=== PATIENT | male | born 1970 | race Caucasian/White ===

== ENCOUNTER 2017-05-08 16:48 | Inpatient (IN) | payer BC ==
[~2017-05-08] VITALS: Ht 185.4 cm; Wt 122.0 kg
--- NOTE | ~2017-05-08 | CO ---
Unit #: [id number] #: [id number] Patient: FE ROMERO II [id number] [address] [place], [place] [address] [id number] I MR#: [id number] NAME: FE ROMERO II ROOM: 241 Age: 46 Sex: M Admission Date: 05/08/2017 : 1970 Attending Physician: Jer Saldivar M.D. Primary Care Physician: Rufino Eubanks M.D. Requesting Physician: Jer Saldivar M.D. Consultation Date: 05/10/2017 CONSULTATION REPORT REASON FOR CONSULTATION Recurrent MRSA infections. HISTORY OF PRESENT ILLNESS Mr. Romero is a 46-year-old male with a history of Crohn disease, as well as multiple MRSA abscesses. In the past he has been seen by infectious disease at [facility] for his abscesses; most recently he was there 3 months ago. He now returns for, what appeared to be, folliculitis on his right groin area that had started about a week ago. The wound had started to drain spontaneously, which he just watched and waited. The wound began to get worse, as well as a wound developing on his left thigh a few days after he had first started to have fevers with chills, for which he came in to the emergency room. He is now status post I and D of right and left upper inner thighs per surgery. Cultures are currently growing Staphylococcus aureus. Blood cultures are negative. The patient has been started on Levaquin and Flagyl, as well as vancomycin. We are now being consulted for antibiotic management and recurrent infections. Per his , they have received several different types of decolonization treatments for MRSA, including the use of Bactroban nasally, as well as frequent use of Hibiclens and decontamination of their house, although it appears that these wounds show up every couple of months. He has had them under his right and left axilla, at one point on his face, as well as scattered areas on his lower extremities. At one point, he had about 9 abscesses on his lower extremities. He denies any history of diabetes and denies any risk factors for HIV. Denies smoking, alcohol or illicit drug use. PAST MEDICAL HISTORY 1. Multiple cutaneous MRSA abscesses. 2. Scrotal abscesses. 3. Crohn disease status post partial small and large bowel resections. 4. Right ankle surgery. ALLERGIES Penicillins; he was told he has had as a child, although he is able to tolerate Keflex. HOME MEDICATIONS As needed Celebrex. CURRENT MEDICATIONS Reviewed. Currently the patient is on vancomycin, Flagyl and Levaquin. Unit #: [id number] #: [id number] Patient: FE ROMERO II FAMILY HISTORY Noncontributory. SOCIAL HISTORY The patient lives with his and family. He is a nonsmoker. Denies alcohol use. Denies illicit drug use. REVIEW OF SYSTEMS All negative except for those stated in the HPI. PHYSICAL EXAM GENERAL: Awake and alert. VITAL SIGNS: Temperature 98.6. On admission temperature was noted to be 102.2. Heart rate 77, respirations 18, blood pressure 119/71. CARDIOVASCULAR: Regular rate and rhythm. PULMONARY: Nonlabored. GI: Soft, nontender. Positive bowel sounds. SKIN: Right inner thigh with erythema. Surgical dressing in place with no drainage, no tenderness, trace edema. Left thigh with trace erythema, dressing in place, no drainage. MUSCULOSKELETAL: Able to move all extremities. DIAGNOSTIC STUDIES IMAGES: Chest x-ray - (1) to have active disease. LABORATORY DATA: Creatinine 1, sodium 135, potassium 3.8, AST 30, ALT 38. White count is 4 (yesterday was 16.2), hemoglobin 12.7, platelets 228. MICROBIOLOGY DATA: Blood cultures on May 08, two of two with no growth. Groin on right and left surgical drainage with Staphylococcus aureus. Pending sensitivities. ASSESSMENT 1. Right and left groin abscesses status post I and D. Cultures with Staphylococcus aureus. 2. Recurring multiple infections. 3. Obese. PLAN At this point will discontinue Levaquin and Flagyl, as no gram-negative rods are isolated in current cultures. Will discontinue vancomycin and change to Zyvox for better skin penetration. Due to recurrent infections, patient may need a decolonization process, although will discuss plan with Naida. The patient is clinically stable at this point. Will follow up on sensitivities of Staphylococcus aureus and cultures. Suspected, though, to be MRSA. Further recommendations will be given by Dr. Donahue, who will see the patient later today. Dictated by... Betty Guadalupe APRN for Marcel Pedraza/leah TD: 05/10/2017 16:22 JOB #: [id number] Unit #: [id number] #: [id number] Patient: YUKIFE L II CONSULTATION REPORT Page 1 of 1 X X CONSULTATION REPORT
--- NOTE | ~2017-05-08 | HP ---
Unit #: [id number] #: [id number] Patient: FE MIRZA II [id number] [address] [place], [place] [address] [id number] I MR#: [id number] NAME: FE MIRZA, II ROOM: 27424 Age: 46 Sex: M Admission Date: 05/08/2017 : 1970 Attending Physician: Susan Justice M.D. Primary Care Physician: Rufino Eubanks M.D. HISTORY AND PHYSICAL CHIEF COMPLAINT Right groin abscess/cellulitis. HISTORY OF PRESENT ILLNESS This 46-year-old male with history of multiple MRSA cutaneous abscesses and Crohn disease is admitted for right groin abscess. The patient was well until two days ago when he developed what he thought was folliculitis in the right groin. He developed itching, burning, redness, and swelling. He did not that an abscess evolved and started draining spontaneously. He began experiencing chills yesterday and today a fever with chills. The abscess stopped draining. Therefore, he presented to this emergency department late this afternoon with a temperature of 102.2. He was treated with Tylenol and two liters of normal saline. His initial lactic acid was 2.5. He was then given 2 grams of vancomycin along with Zosyn. An I and D was attempted, and a little bit of purulent drainage was obtained. He was also given Dilaudid and Zofran. On examination, he has an obvious abscess of the right groin which does not extend into the perineum. PAST MEDICAL HISTORY 1. Multiple cutaneous MRSA abscesses requiring I and D. 2. Scrotal abscess admitted to [facility] last year. 3. Crohn disease, status post partial small and large bowel resection. 4. Right ankle surgery following a fracture. ALLERGIES Penicillin and possibly to cephalosporins. HOME MEDICATIONS P.r.n. Celebrex. FAMILY HISTORY Crohn disease. SOCIAL HISTORY The patient lives with his and family. He is a lifelong nonsmoker and does not drink alcohol, nor does he use illicit drugs. REVIEW OF SYSTEMS Notable for pain and swelling of the right groin, MRSA abscesses, Crohn disease, and ankle surgery, along with I and D's of abscesses. All other systems were reviewed and are otherwise negative. Unit #: [id number] #: [id number] Patient: FE MIRZA II PHYSICAL EXAMINATION GENERAL: A very pleasant, moderately obese, 46-year-old male currently in no acute distress. VITAL SIGNS: Temperature 102.2, pulse 93, respirations 18, blood pressure 157/87, and O2 saturation is 100% on room air. HEENT: Eyes PERRLA. Extraocular muscles are intact. Pharynx is benign. NECK: Supple without adenopathy or thyromegaly. CHEST: Clear. CARDIAC: Normal S1 and S2 without S3, S4, or murmur. ABDOMEN: Bowel sounds are present. No hepatosplenomegaly, tenderness, or masses. EXTREMITIES: No pedal edema. Pedal pulses are present. There is an abscess with associated cellulitis in the right groin which does not extend to the perineum. NEUROLOGIC: Patient is awake, alert, and oriented. Cranial nerves are intact. Equal strength throughout. DIAGNOSTIC STUDIES ADMISSION LABORATORY: Hematocrit is 42.5, white blood count is 18.7, and normal platelet count. Negative cardiac enzymes. Normal coags. SMA-12 is normal. Lactic acid is 2.5. IMAGING: Chest x-ray likely no acute disease. There may be some soft tissue overlay or perhaps atelectasis at one of the lung bases. CARDIOLOGY: EKG shows normal sinus rhythm, rate 80, left axis deviation. ASSESSMENT 1. Right groin abscess/cellulitis with early sepsis. History of multiple MRSA cutaneous abscesses requiring I and D. 2. Crohn disease, status post partial bowel resection. 3. Possible penicillin and possible cephalosporin allergy, although patient tolerated Zosyn in the emergency room. PLANS 1. IV fluids and supportive treatment. 2. Vancomycin, Levaquin, and Flagyl pending culture results and then will deescalate antibiotics. 3. Florastor for now. 4. Surgical consultation. 5. SCDs for DVT prophylaxis. 6. Recheck labs in the morning. 1. Dictated by Susan Justice M.D. AML/am TD: 05/08/2017 22:00 JOB #: [id number] Unit #: [id number] #: [id number] Patient: FE MIRZA II HISTORY AND PHYSICAL Page 1 of 1 X Susan Justice MD HISTORY AND PHYSICAL
--- NOTE | ~2017-05-08 | CR72 ---
[facility] A Service of [facility] RADIOLOGY TEXT RESULTS PATIENT: FE MIRZA II LOCATION: A : [birth year] UNIT #: [id number] AGE: [address]: Jer Saldivar MD SEX: M ORDER DR: [id number] [facility] [address] [place], [place] [address] [id number] I MR#: [id number] Acc #: [id number] NAME: FE MIRZA, II : 1970 SEX: M STUDY DATE/TIME: 05/08/2017 17:48 UNIT: [facility] ROOM: [facility] STUDY DESCRIPTION: CR Chest Single View Portable Attending Physician: Susan Justice M.D. Ordering Physician: Ed Aubrey Bello M.D. Primary Care Physician: Rufino Eubanks M.D. MEDICAL IMAGING REPORT This report is preliminary unless electronic signature is present EXAM Single view of the chest, 05/08/2017 COMPARISON None. HISTORY Acute shortness of air and sepsis today. FINDINGS Single frontal view of the chest was obtained. There is mild opacity noted in the left lateral CP angle. It could be related to overlying extrinsic soft tissue shadow or mild atelectasis/pleural fluid or thickening in this region. Remaining lungs appear to be well aerated. Heart, mediastinum and bones are within normal limits. Dictated by... Brianna Samayoa M.D. THIS IS AN ELECTRONICALLY VERIFIED REPORT Brianna Samayoa M.D. at 05/09/2017 3:28 PM CPR/ljd TD: 05/09/2017 04:04 JOB #: [id number] MEDICAL IMAGING REPORT Page 1 of 1 COPY
--- NOTE | ~2017-05-08 | OR ---
Unit #: [id number] #: [id number] Patient: FE MIRZA II [id number] [address] [address] [id number] I MR#: [id number] NAME: FE MIRZA II ROOM: [facility] Date of Procedure: 05/09/2017 Admission Date: 05/08/2017 Surgeon: Ortiz Bishop M.D. : 1970 Attending Physician: Jer Saldivar M.D. Primary Care Physician: Rufino Eubanks M.D. OPERATIVE REPORT PREOPERATIVE DIAGNOSES 1. Necrotic abscess, right upper inner thigh. 2. Necrotic abscess, left upper inner thigh. ANESTHESIA General LMA anesthesia with 0.5% Marcaine plain local anesthesia. PROCEDURES PERFORMED 1. Incision, drainage, and sharp excisional debridement of skin and subcutaneous tissue, right upper inner thigh 6 x 6 cm area. 2. Incision, drainage, and sharp excisional debridement of skin and subcutaneous tissue, left upper inner thigh 3 x 3 cm area. FINDINGS See above. FLUIDS 500 mL crystalloid. ESTIMATED BLOOD LOSS Minimal. DRAINS None. TUBES None. SPECIMENS Sent to microbiology and pathology. COMPLICATIONS None apparent. CONDITION The patient tolerated the procedure well. INDICATIONS FOR PROCEDURE The patient is a 46-year-old male, who presents at this time with a necrotic abscess of right upper inner thigh and left upper inner thigh. He presents at this time for incision and drainage and debridement. Unit #: [id number] #: [id number] Patient: FE MIRZA II DESCRIPTION OF PROCEDURE After obtaining informed consent as well as receiving scheduled antibiotics, the patient was brought to the operating room and after adequate general LMA anesthesia was obtained, he was carefully placed into the lithotomy position using candy-cane stirrups with all extremities manipulated very carefully and all pressure points carefully padded. His upper inner thighs bilaterally and perineum were prepped and draped in a sterile fashion. An incision was made into the area of the left upper inner thigh and purulent material was evacuated. The necrotic tissue was sharply debrided with skin and subcutaneous tissue, 3 x 3 cm area back to healthy viable tissue and was sent to microbiology and pathology. The wound was irrigated. Hemostasis was obtained with the Bovie, infiltrated with 0.5% Marcaine plain local anesthesia and packed with saline soaked fluff. At this point in time, an incision was made into the abscess of the right upper inner thigh. Purulent material was evacuated and cultures were sent. The involved skin and subcutaneous tissue was sharply debrided with a scalpel circumferentially back to viable tissue. Hemostasis was obtained with the Bovie. All areas were infiltrated with 0.5% Marcaine plain local anesthesia. The wound was irrigated. It was packed with saline soaked fluffs. Dry 4x4s were placed followed by tape. Needle counts, sponge counts, and instrument counts were all correct as reported by the scrub nurse x2. The patient went from the operating room to the recovery room in stable condition. Dictated by... Marcel Tiwari/papa TD: 05/09/2017 17:51 JOB #: [id number] CC: [facility] Marcel Pedraza M.D. OPERATIVE REPORT Page 1 of 1 X Ortiz Bishop MD X PROCEDURE OPERATIVE NOTE
--- NOTE | ~2017-05-08 | EKG ---
PATIENT: FE MIRZA UNIT #: [id number] Ventricular Rate: 81 BPM Atrial Rate: 81 BPM P-R Interval: 142 ms QRS Duration: 78 ms Q-T Interval: 358 ms QTC Calculation(Bezet): 415 ms P [place]: 28 degrees Calculated R [place]: -12 degrees Calculated T [place]: 8 degrees Diagnosis Line: Normal sinus rhythm Diagnosis Line: Normal ECG Diagnosis Line: No previous ECGs available Diagnosis Line: Confirmed by LIAN MURILLO MD ([id number]) on 05/09/2017 Diagnosis Line: 12:09:01 AM INTERPRETING MD: LIDIA GUADARRAMA
--- NOTE | ~2017-05-08 | DS ---
Unit #: [id number] #: [id number] Patient: FE MIRZA II [id number] [facility] [address]. [place], [place] [address] [id number] MR#: [id number] NAME: FE MIRZA, II ROOM: 241 Age: 46 Sex: M Admission Date: 05/08/2017 : 1970 Discharge Date: 05/11/2017 Attending Physician: Jer Saldivar M.D. Primary Care Physician: Rufino Eubanks M.D. DISCHARGE SUMMARY REASON FOR ADMISSION Right thigh abscess/cellulitis. HISTORY OF PRESENT ILLNESS The patient is a 46-year-old, very pleasant male who was admitted secondary to right thigh/groin abscess. He, off and on over the past several years, has been developing recurrent boils and/or abscesses, has been admitted several times to both [facility] as well as [facility]. He was subsequently admitted for the same. He was initiated on IV antibiotics. His initial temperature was 102. Consultation was subsequently placed to [facility]. The patient ultimately underwent I and D by Dr. Bishop on May 09, 2017. Postoperatively, he otherwise did well. Final wound cultures did reveal MRSA similar to previous infections that he has had in the past. At time of discharge, we will be giving a prescription for Zyvox 600 mg p.o. b.i.d. x10 days. We did consult Infectious Disease Services, Dr. Donahue and associates, secondary to his recurrent boils. Hemoglobin A1C was performed which came back at 5.2%. Therefore, diabetes was not a possible etiology but certainly hidradenitis suppurativa could be entertained as a possible diagnosis. His blood cultures did not show any acute bacterial growth. After Zyvox prescription is completed, the patient will be started on doxycycline 50 mg p.o. daily as suppressive therapy. He will follow up with his primary care physician, Dr. Joceline Gonzalez, in 7 to 10 days. He will be given a work note from May 08, 2017 to May 19, 2017, with return to work on May 20, 2017. He was given a prescription for [place] 10/325 mg one tablet p.o. q.4 p.r.n. FINAL DISCHARGE DIAGNOSES 1. Right groin abscess status post incision and drainage. 2. Recurrent boil/abscesses likely underlying hidradenitis suppurativa. 3. Morbid obesity. FINAL DISCHARGE MEDICATIONS 1. Zyvox 600 mg p.o. b.i.d. x10 days. 2. Doxycycline 50 mg p.o. daily afterwards. 3. [place] 10/325 mg one tablet p.o. q.6 p.r.n., #20, prescription given. DISCHARGE CONDITION Stable. DISCHARGE DISPOSITION Home. Unit #: [id number] #: [id number] Patient: YUKIFE Gustafson II Dictated by... Marcel Harden/liz TD: 05/11/2017 12:55 JOB #: [id number] DISCHARGE SUMMARY Page 1 of 1 X Jer Saldivar MD X DISCHARGE SUMMARY
--- NOTE | ~2017-05-08 | CO ---
Unit #: [id number] #: [id number] Patient: FE ROMERO II [id number] [address] [place], [place] [address] [id number] I MR#: [id number] NAME: FE ROMERO II ROOM: 241 Age: 46 Sex: M Admission Date: 05/08/2017 : 1970 Attending Physician: Jer Saldivar M.D. Primary Care Physician: Rufino Eubanks M.D. Consultation Date: 05/09/2017 CONSULTATION REPORT REVISED REPORT HISTORY OF PRESENT ILLNESS Mr. Romero is a 46-year-old white male, who has a fairly large right groin abscess extending down into his thigh as well as a smaller one on the left side. Attempted I and D in the ER was done, but it was not opened that well. The patient has been running fever and was noted to have a marginally elevated serum lactate level. He was admitted for surgical treatment. The patient was given vancomycin and Zosyn as far as antibiotics go. PAST MEDICAL HISTORY Has had reconstructed bowel surgery, right ankle surgery but he has no GI complaints today. He has had history of Crohn disease. SOCIAL HISTORY He is a nonsmoker, nondrinker. No illicit drug use. ALLERGIES Penicillin, unclear as to whether or not the Zosyn was given. PHYSICAL EXAMINATION GENERAL: Cooperative, alert, white male, obese. HEENT: Clear. No jaundice. Pupils equally reactive to light and accommodation. CHEST: Clear to auscultation and percussion. CARDIAC: Rhythm is regular. No murmurs. ABDOMEN: Soft, nontender. EXTREMITIES: Right groin - large area of induration with small area of fluctuma. On the left side, there is a smaller area. No drainage, however. PLAN We need to go ahead and proceed with opening and draining both these areas and cleaning them out. Risks, benefits explained to patient. He understands. Dictated by... Unit #: [id number] #: [id number] Patient: FE ROMERO II Marcel Hendrickson/kwan TD: 05/09/2017 14:22 JOB #: [id number] CONSULTATION REPORT Page 1 of 1 X Luther Underwood MD CONSULTATION REPORT
[~2017-05-08 16:48] MED LIST: ACETAMINOPHEN PO; BACTRIM DS TABL1 TA2; BACTRIM DS TABL1 TA2 PO; CLEOCIN HCL300 M1 PO; CLINDAMYCIN HC300 MG PO; IBUPROFEN800 MG PO; TYLENOL #3 PO; VOLTAREN75 MG PO
[2017-05-08 18:13] LABS: BASOPHIL% 0.2 % (0-2.5); DIFF IND YES; EOSINOPHIL% 0.1 % (0.0-7.0); HEMATOCRIT 42.5 % (38.0-50.0); HEMOGLOBIN 14.7 gm/dL (13.0-16.0); LYMPHOCYTE# 2.1 X10e3 (1.0-3.5); LYMPHOCYTE% 11.5 % (17.0-45.0); MEAN CELL VOLUME 83.7 FL (83-96); MEAN CORPUSCULAR HEMOGLOBIN 28.9 PG (28-34); MEAN CORPUSCULAR HGB CONC 34.5 g/dL (30-36); MEAN PLATELET VOLUME 7.4 FL (6.5-11.5); MONOCYTE# 1.2 X10e3 (0-1.0); MONOCYTE% 6.3 % (3.0-12.0); NEUTROPHIL# 15.3 X10e3 (1.5-7.1); NEUTROPHIL% 81.9 % (40-75); PLATELET COUNT 300 X10e3 (140-420); RED BLOOD COUNT 5.08 X10e (3.90-5.60); RED CELL DISTRIBUTION WIDTH 13.2 % (11.0-15.5); WHITE BLOOD COUNT 18.7 X10e3 (4.0-10.5)
[2017-05-08 18:21] LABS: INR 1.1; PARTIAL THROMBOPLASTIN TIME 29.5 SECONDS (23.5-31.3); PROTHROMBIN TIME (PATIENT) 11.5 SECONDS (10.0-11.7)
[2017-05-08 18:29] LABS: ALBUMIN SERUM 4.4 g/dL (3.5-5.0); BILIRUBIN, DIRECT 0.4 mg/dL (0.0-0.2); BILIRUBIN,INDIRECT 1.2 mg/dL (0.0-0.9); BILIRUBIN,TOTAL 1.6 mg/dL (0.2-2.0); CALCIUM SERUM 9.1 mg/dL (8.4-10.2); GLOM FILT RATE Estimated 89.2 mL/min (>60); POTASSIUM 3.6 mmol/L (3.5-5.1); PROTEIN TOTAL SERUM 8.1 g/dL (6.0-8.3)
[2017-05-08 18:37] LABS: PLATELET ESTIMATE NORMAL (NORMAL)
[2017-05-08 18:38] LABS: ANISOCYTOSIS SL
[2017-05-08] MEDS ORDERED: NO MEDICATIONS (19:14)
[2017-05-08 20:35] LABS: POC - CKMB <1.0 ng/mL (0.0-7.9); POC - TROPONIN <0.05 ng/mL (<=0.05)
[2017-05-09 07:03] LABS: HEMATOCRIT 39.7 % (38.0-50.0); HEMOGLOBIN 13.8 gm/dL (13.0-16.0); MEAN CELL VOLUME 84.2 FL (83-96); MEAN CORPUSCULAR HEMOGLOBIN 29.2 PG (28-34); MEAN CORPUSCULAR HGB CONC 34.7 g/dL (30-36); MEAN PLATELET VOLUME 7.1 FL (6.5-11.5); RED BLOOD COUNT 4.71 X10e (3.90-5.60); RED CELL DISTRIBUTION WIDTH 13.6 % (11.0-15.5); WHITE BLOOD COUNT 16.2 X10e3 (4.0-10.5)
[2017-05-09 07:45] LABS: BUN/CREATININE RATIO 7.27; CALCIUM SERUM 8.2 mg/dL (8.4-10.2); CREATININE SERUM 1.1 mg/dL (0.6-1.4); GLOM FILT RATE Estimated 79.5 mL/min (>60); POTASSIUM 4.3 mmol/L (3.5-5.1)
[2017-05-10 06:46] LABS: HEMATOCRIT 37.8 % (38.0-50.0); HEMOGLOBIN 12.7 gm/dL (13.0-16.0); MEAN CELL VOLUME 84.6 FL (83-96); MEAN CORPUSCULAR HEMOGLOBIN 28.5 PG (28-34); MEAN CORPUSCULAR HGB CONC 33.7 g/dL (30-36); MEAN PLATELET VOLUME 7.5 FL (6.5-11.5); RED BLOOD COUNT 4.47 X10e (3.90-5.60); RED CELL DISTRIBUTION WIDTH 13.2 % (11.0-15.5)
[2017-05-10 07:30] LABS: CALCIUM SERUM 8.2 mg/dL (8.4-10.2); GLOM FILT RATE Estimated 89.2 mL/min (>60); POTASSIUM 3.8 mmol/L (3.5-5.1)
[2017-05-11] MEDS ORDERED: PAIN RELIEF500 M1 PO (15:15)
[2017-05-11] MEDS ORDERED: ZYVOX600 MG PO (15:15)
[2017-05-11] MEDS ORDERED: LORTAB 10-3251 EACH (15:16)
[2017-05-11] MEDS ORDERED: DOXYCYCLINE HYC50 M1 PO (15:16)
[2017-05-12 08:59] LABS: IMMUNOGLOBULIN A 164 mg/dL (81-463); IMMUNOGLOBULIN E <2 kU/L (<=114); IMMUNOGLOBULIN G 900 mg/dL (694-1618); IMMUNOGLOBULIN M 160 mg/dL (48-271)
[2017-05-13 00:32] LABS: NIL 0.05 IU/mL (()); QUANTIFERON POSITIVE (Negative); TB AG-NIL 0.43 IU/mL (())
== END 2017-05-11 15:50 | disposition home or self-care (01) | DRG 571 ==
LOC: CED 16:48 → C2A 21:20 → CEDOF 21:20 → CED 21:37 → CEDOF 22:44 → C2A 22:44
PROVIDERS: Emergency Medicine; Family Medicine; Internal Medicine; Internal Medicine Infectious Disease; Surgery
PROC: 0JBL0ZZ Excision of Right Upper Leg Subcutaneous Tissue and Fascia, Open Approach (ICD-10-PCS; 2017-05-09)
PROC: 0JBM0ZZ Excision of Left Upper Leg Subcutaneous Tissue and Fascia, Open Approach (ICD-10-PCS; principal; 2017-05-09 12:30)
DX: L02.416 Cutaneous abscess of left lower limb (principal); L02.214 Cutaneous abscess of groin; E66.01 Morbid (severe) obesity due to excess calories; L02.415 Cutaneous abscess of right lower limb; B95.62 Methicillin resistant Staphylococcus aureus infection as the cause of diseases classified elsewhere; Z68.35 Body mass index [BMI] 35.0-35.9, adult; L73.2 Hidradenitis suppurativa; Z88.0 Allergy status to penicillin; Z86.14 Personal history of Methicillin resistant Staphylococcus aureus infection
CPT/HCPCS: 10060; 36415; 71010; 80048; 80076; 82553; 82784; 82785; 83036; 83605; 84484; 85025; 85027; 85610; 85730; 86480; 87040; 87070; 87075; 87077; 87186; 87205; 88304; 88312; 93005; 96365; 96366; 96375; 99285; J1170; J1650; J1956; J2020; J2250; J2405; J2543; J3010; J3370

== ENCOUNTER 2017-05-28 02:36 | Inpatient (IN) | payer BC ==
[~2017-05-28] VITALS: Ht 180.3 cm; Wt 122.0 kg
--- NOTE | ~2017-05-28 | US85 ---
[facility] A Service [facility] RADIOLOGY TEXT RESULTS PATIENT: FE MIRZA II LOCATION: [place] [address] : [birth year] UNIT #: [id number] AGE: [address]: Sherly Garcia MD SEX: M ORDER DR: [id number] [place] [id number] [facility]. [place], [place] [address] [id number] I MR#: [id number] #: [id number] NAME: FE MIRZA II : 1970 SEX: M STUDY DATE/TIME: 05/28/2017 7:28 UNIT: [facility] ROOM: [facility] STUDY DESCRIPTION: LE Veins Unilat or Ltd Stdy Attending Physician: Sherly Garcia M.D. Ordering Physician: Bruno Martinez M.D. Primary Care Physician: Rufino Eubanks M.D. MEDICAL IMAGING REPORT This report is preliminary unless electronic signature is present EXAM Right lower extremity venous ultrasound HISTORY Right leg pain for a week. TECHNIQUE Venous ultrasound examination of the right lower extremity was performed using grayscale, spectral Doppler and color flow Doppler imaging. FINDINGS The examination is negative. There is no evidence of right lower extremity deep venous thrombus from the groin to the lower calf. Visualized greater saphenous vein is also patent. IMPRESSION Negative examination. No evidence of right lower extremity deep venous thrombosis. Dictated by... Riky Alfredo M.D. THIS IS AN ELECTRONICALLY VERIFIED REPORT Riky Alfredo M.D. at 05/28/2017 3:00 PM FEL/to TD: 05/28/2017 14:18 JOB #: [id number] [facility] A Service [facility] RADIOLOGY TEXT RESULTS PATIENT: FE MIRZA II LOCATION: [place] [address] : [birth year] UNIT #: [id number] AGE: [address]: Sheryl Garcia MD SEX: M ORDER DR: MEDICAL IMAGING REPORT Page 1 of 1 COPY
--- NOTE | ~2017-05-28 | HP ---
Unit #: [id number] #: [id number] Patient: FE MIRZA II [id number] [address] [place], [place] [address] [id number] MR#: [id number] NAME: FE MIRZA II ROOM: 464 Age: 46 Sex: M Admission Date: 05/28/2017 : 1970 Attending Physician: Sherly Garcia M.D. Primary Care Physician: Rufino Eubanks M.D. HISTORY AND PHYSICAL CHIEF COMPLAINT Right ankle/big toe swelling. HISTORY OF PRESENT ILLNESS The patient is a 46-year-old male with past medical history of MRSA and Crohn disease who presented to the emergency department for evaluation of the above. Of note the patient was hospitalized at [facility] May 08 through May 11, 2017 for right thigh abscess/cellulitis. He ultimately underwent incision and drainage. Wound culture grew MRSA. Blood cultures from May 08, 2017 showed no growth after 5 days. He was discharged home on Zyvox for an additional 10 days, which he completed as prescribed. He was then instructed to start doxycycline for suppression, as per infectious disease's recommendation. He has been taking that as prescribed, as well. He has also been packing the right thigh wound daily with a normal saline dressing. The patient states that he developed pain in his right heel on the day of discharge. He saw his primary care physician and was placed in some type of boot for about 24 hours. That pain resolved. He then developed right knee pain on May 22, 2017. He saw his primary care physician. X-rays, as well as blood work, were done. Family states that his white blood cell count was 11. He subsequently developed pain in the right great toe and ankle on May 24, 2017. He describes the pain as "unbearable." The pain in the right knee has resolved. He denies any similar pain in the toe or ankle. He denies any fever. No chest pain. No cough or cold symptoms. No nausea or vomiting. The pain is exacerbated by movement. There are no alleviating factors. In the emergency department right lower extremity venous Doppler was done and negative for DVT. Right ankle x-ray showed nothing acute. White blood cell count is 13.1. CRP is 1.9. Lactic acid is 1.8. He was given vancomycin in the emergency department, as well as a total of 8 mg of morphine, 1 mg of Dilaudid, 4 mg of Zofran. He is being admitted to [facility] for evaluation and further treatment. PAST MEDICAL HISTORY 1. Admission to [facility] May 08 through May 11, 2017 for right thigh abscess/cellulitis, ultimately growing MRSA in the wound culture. He was discharged home on Zyvox, followed by doxycycline suppression, which he has been taking as prescribed. 2. 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 3. Crohn disease status post partial small and large bowel resection, Unit #: [id number] #: [id number] Patient: FE MIRZA CITLALI followed by Dr. Nye. PAST SURGICAL HISTORY 1. Multiple incision and drainage procedures for abscesses. 2. Partial small and large bowel resection. 3. Right ankle surgery. SOCIAL HISTORY The patient lives with his . There is no tobacco or alcohol use. He does fpc work. FAMILY HISTORY Notable for Crohn disease. ALLERGIES Penicillin. HOME MEDICATIONS Doxycycline 50 mg daily. REVIEW OF SYSTEMS A complete review of systems is negative except as indicated in the HPI. PHYSICAL EXAMINATION VITAL SIGNS: Temperature is 97.8, pulse 70, respirations 16, blood pressure 174/91, oxygen saturation 100% on room air. GENERAL: The patient is a very pleasant male who is awake and alert, in no acute distress. HEENT: The head is atraumatic. Mucous membranes are moist. NECK: Supple. Trachea is midline. CARDIOVASCULAR: Regular rate and rhythm. RESPIRATORY: Lungs are clear to auscultation bilaterally with no increased work of breathing. ABDOMEN: Soft, nontender with bowel sounds present in all 4 quadrants. EXTREMITIES: The proximal right thigh demonstrates a quarter sized wound with packing in place. The right knee is not tender to palpation. The right ankle is tender to the slightest palpation. He is also quite tender at the metatarsophalangeal joint of the great toe. There is also associated mild erythema. He has decreased range of motion secondary to pain. There is a 2+ dorsalis pedis pulse. Sensation is subjectively intact. NEUROLOGIC: The patient is awake and alert. He follows commands. PSYCHIATRIC: Mood and affect are normal. The patient is cooperative. SKIN: Skin demonstrates the previously described abnormalities. DIAGNOSTIC TESTS IMAGING: Right lower extremity venous Doppler negative for DVT. Right ankle x-ray shows nothing acute. LABORATORY: Lactic acid is 1.8. Comprehensive metabolic panel notable for ALT of 42. CRP is 1.9. Complete blood count notable for white blood cell count of 13.1, sed rate 25. ASSESSMENT 1. The patient is a 46-year-old male with right ankle/foot pain concerning for possible septic arthritis versus gout. The patient received vancomycin in the emergency department. He does have a history of MRSA. Unit #: [id number] #: [id number] Patient: FE MIRZA II 2. Leukocytosis with no other SIRS criteria. Initial lactic acid was 1.8. 3. History of MRSA. 4. History of Crohn disease, not on any medications. He is, however, status post surgery involving the small and large intestines. He sees Dr. Nye. PLAN 1. Admit to intermediate level. 2. Healthy heart diet. 3. Normal saline at 75 mL an hour. 4. Vancomycin IV and Rocephin IV pending further workup. 5. Blood cultures x2. 6. Consult Dr. Salvador regarding right ankle/foot pain and concern for possible septic arthritis. 7. Check uric acid level. 8. Morphine p.r.n. 9. Zofran p.r.n. 10. Repeat labs in the morning, including CRP. . 11. Additional workup and consultants based on above. Dictated by Marcel Horvath/leah TD: 05/28/2017 12:21 JOB #: [id number] HISTORY AND PHYSICAL Page 1 of 1 X Sherly Garcia MD HISTORY AND PHYSICAL
--- NOTE | ~2017-05-28 | DS ---
Unit #: [id number] #: [id number] Patient: FE ROMERO II [id number] [address] [place], [place] [address] [id number] MR#: [id number] NAME: FE ROMERO, II ROOM: 464 Age: 46 Sex: M Admission Date: 05/28/2017 : 1970 Discharge Date: 05/29/2017 Attending Physician: Mirella Blum M.D. Primary Care Physician: Rufino Eubanks M.D. DISCHARGE SUMMARY PRINCIPAL DIAGNOSES 1. Acute gouty arthritis of the right first metatarsophalangeal joint. 2. Reactive leukocytosis. 3. Obesity. 4. History of Crohn disease, currently controlled off of medication. 5. History of methicillin-resistant Staphylococcus aureus of the skin. CONSULTANTS Dr. Salvador, orthopedic surgery. DIAGNOSTIC STUDIES IMAGING: CT scan of the right foot and ankle without contrast revealing traumatic bone changes to the right talar bone. There is calcification of the right first metatarsophalangeal joint with questionable pseudo-gouty arthritis. CLINICAL HISTORY AND HOSPITAL COURSE Mr. Romero is a 46-year-old male who presented to the emergency department with acute right foot swelling and erythema. Please refer to H and P for further details. In the emergency department, the patient was found to have a very mild leukocytosis but had no evidence of fever. Given he has history of MRSA in the past, he was subsequently admitted for further evaluation. Patient was placed on broad-spectrum IV antibiotics but remained afebrile. Leukocytosis was essentially unchanged on antibiotics. Uric acid level done today is elevated at 7.8, and CT scan was done with results as noted. We suspect patient's erythema and joint pain are an acute gouty flare plus/minus, perhaps, some underlying pseudogout. Patient has received 3 doses of Colchicine during hospitalization, in addition to a single dose of Solu-Medrol. He can be discharged home later today with close followup with his PCP. I will note, again, no evidence of infection, and antibiotics were discontinued. DISCHARGE CONDITION Stable. DISCHARGE STATUS Discharge to home. DISCHARGE MEDICATIONS 1. Naproxen 500 mg p.o. b.i.d. for 5 days. 2. Oxycodone 5 mg 1 tablet p.o. q.h.s. p.r.n. for pain (number given 4). 3. Doxycycline 50 mg p.o. daily. Unit #: [id number] #: [id number] Patient: FE ROMERO II DISCHARGE INSTRUCTIONS Patient was instructed to be nonweightbearing until pain resolves in the right foot, at which time he can increase activity as tolerated. He can follow a heart healthy diet. FOLLOW-UP 1. Patient will follow up with Dr. Eubanks in 2 weeks. 2. Should have recheck of uric acid level then and can, perhaps, consider addition of Allopurinol. NOTE: Time spent on discharge today - 37 minutes. Dictated by... Mirella Blum M.D. JAYDON/leah TD: 05/30/2017 11:31 JOB #: [id number] DISCHARGE SUMMARY Page 1 of 1 X Mirella Blum MD X DISCHARGE SUMMARY
--- NOTE | ~2017-05-28 | CR21 ---
[facility] A Service of [facility] & [facility] RADIOLOGY TEXT RESULTS PATIENT: FE MIRZA II LOCATION: [place] [address] : [birth year] UNIT #: [id number] AGE: [address]: Sherly Garcia MD SEX: M ORDER DR: [id number] [facility] [address] [facility]. [place], [place] [address] [id number] I MR#: [id number] #: [id number] NAME: FE MIRZA II : 1970 SEX: M STUDY DATE/TIME: 05/28/2017 5:39 UNIT: [facility] ROOM: [facility] STUDY DESCRIPTION: CR Ankle Min 3 Views Rt Attending Physician: Sherly Garcia M.D. Ordering Physician: Bruno Martinez M.D. Primary Care Physician: Rufino Eubanks M.D. MEDICAL IMAGING REPORT This report is preliminary unless electronic signature is present EXAM Right ankle 3 views. HISTORY Ankle pain for 3 days. No injury. Swelling. FINDINGS 3 views of the right ankle demonstrate normal bone alignment. No fracture, joint space narrowing or abnormal sclerosis. No opaque soft tissue foreign body. Small posterior calcaneal spur. IMPRESSION No acute findings. Dictated by... Fabian Kwan M.D. THIS IS AN ELECTRONICALLY VERIFIED REPORT Fabian Kwan M.D. at 05/28/2017 10:32 PM DFL/gz TD: 05/28/2017 13:07 JOB #: [id number] MEDICAL IMAGING REPORT Page 1 of 1 COPY
--- NOTE | ~2017-05-28 | CO ---
Unit #: [id number] #: [id number] Patient: FE MIRZA II [id number] [address] [place], [place] [address] [id number] MR#: [id number] NAME: FE MIRZA II ROOM: 464 Age: 46 Sex: M Admission Date: 05/28/2017 : 1970 Attending Physician: Mirella Blum M.D. Primary Care Physician: Rufino Eubanks M.D. Consultation Date: 05/29/2017 CONSULTATION REPORT ADMITTING PHYSICIAN Dr. Garcia CONSULT PHYSICIAN Dr. Salvador REASON FOR CONSULTATION Right foot and ankle pain. HISTORY OF PRESENT ILLNESS The patient is a pleasant 46-year-old who we were consulted by Dr. Garcia for right foot and ankle pain. The patient reports he did have a history of MRSA in his right groin area. The patient reports he has had right foot and ankle pain that has been going on approximately four days. he did go to his family doctor and they put boot on his right lower extremity but just for a day. The patient has been treated with antibiotics for his infections. Today, his right foot is some better. He rates his pain as an 8 on a scale of 1 to 10. Again, the patient does feel like this has gotten much better. Now, he just has a little pain and numbness in his right great toe. He denies any fever or chills. The patient reports that it is a little worse with ambulation. The patient has not suffered any trauma. PAST MEDICAL HISTORY 1. Recent admission to [place] May 08 through May 11 for right thigh abscess/cellulitis. Ultimately MRSA in the wound. 2. History of multiple MRSA abscess requiring I and D. 3. Crohn's disease. PAST SURGICAL 1. Multiple incision and drainage procedures for abscess. 2. Partial small and large bowel resection. 3. Right ankle surgery. SOCIAL HISTORY The patient lives with his . Denies any tobacco or alcohol. FAMILY HISTORY Notable for Crohn's. ALLERGIES Penicillin. HOME MEDICATIONS Unit #: [id number] #: [id number] Patient: FE MIRZA II Doxycycline 50 mg daily. REVIEW OF SYSTEMS CONSTITUTIONAL: Denies any weight gain or weight loss. EYES: Denies any double vision or blurred vision. LUNGS: Denies any shortness of air or chronic cough. CARDIOVASCULAR: Denies any chest pain or irregular heartbeat. ABDOMEN: Denies any nausea or vomiting. MUSCULOSKELETAL: Admits to some pain in his right foot/great toe, improved. SKIN: Denies any rashes or lesions. Twelve complete systems in total reviewed and negative other than above. PHYSICAL EXAMINATION GENERAL: He is well developed, well nourished, in no acute distress. VITAL SIGNS: His temperature 97.8, blood pressure 149/690, heart rate 72 and regular, respirations 16. HEENT: Normocephalic, atraumatic. PERRLA. Extraocular movements intact. Conjunctivae clear. NECK: Supple. No thyromegaly. CARDIOVASCULAR: S1, S2. RESPIRATORY: Lungs clear to auscultation. No accessory muscle use. ABDOMEN: Soft, nontender, nondistended. Positive bowel sounds. MUSCULOSKELETAL EXAMINATION: Patient's right ankle reveals he did have decreased range of motion. He had equal strength in his lower extremities bilaterally. He had 2+ pulses in his lower extremities bilaterally. The patient did have a lot of tenderness in the metatarsophalangeal joint of his great toe. There is mild edema but no erythema. SKIN: No rashes, lesions or ulcers. NEUROLOGICAL/LIMITED ORTHOPEDIC EXAM: Moved all four extremities without problems or complications. DIAGNOSTIC STUDIES IMAGING: CT scan dictation not back but voice clip did not show any signs of infection. Possible pseudogout. Ultrasound was negative for DVT. LABORATORY: Sodium is 137, potassium is 4.3, chloride is 101, CO2 26, BUN 14, creatinine 0.9, glucose 90, WBC 13.1, hemoglobin 14.9. X-rays of his right ankle - no acute findings. ASSESSMENT Right foot pain. PLAN We will redraw uric acid and make further recommendations based upon this test. Dictated by... Philip Mckeon P.A.-C- for Jose J Salvador M.D. SHAILESH/kapil Unit #: [id number] #: [id number] Patient: FE MIRZA II TD: 05/29/2017 09:17 JOB #: [id number] CONSULTATION REPORT Page 1 of 1 X X CONSULTATION REPORT
--- NOTE | ~2017-05-28 | CT95 ---
[facility] A Service of [facility] & [facility] RADIOLOGY TEXT RESULTS PATIENT: FE MIRZA II LOCATION: [place] [address]- : [birth year] UNIT #: [id number] AGE: [address]: Mirella Blum MD SEX: M ORDER DR: [id number] [facility] [address] [facility]. [place], [place] [address] [id number] MR#: [id number] Acc #: [id number] NAME: FE MIRZA, CITLALI : 1970 SEX: M STUDY DATE/TIME: 05/28/2017 20:14 UNIT: [facility] ROOM: [facility] STUDY DESCRIPTION: CT Lower Ext Rt Wo Cont Attending Physician: Mirella Blum M.D. Ordering Physician: Justo Sharma Primary Care Physician: Rufino Eubanks M.D. MEDICAL IMAGING REPORT This report is preliminary unless electronic signature is present EXAM CT right ankle. HISTORY 46-year-old male right great toe and ankle pain for [address] exam was performed with one or more of the following radiation dose reduction techniques: automatic exposure control, adjustment of mA and/or kV according to patient size, and iterative reconstruction. FINDINGS Axial images perform through the foot and ankle without contrast. Multiplanar reconstructed images reviewed. Examination demonstrates a 13 x 15 mm osteochondral lesion medial aspect the talar dome. No definite in situ or loose fragment identified. Early arthritic change seen at the ankle joint. The subtalar joint unremarkable. No acute fracture or dislocation. Joint space is maintained. Small amount of periarticular calcification about the great toe at the first MTP joint, nonspecific. No focal soft tissue swelling, mass lesion identified. Intrinsic foot musculature appears normal. Ankle tendons appear normal. IMPRESSION 1. 13 x 15 mm osteochondral lesion medial talar dome, possibly degenerative or post-traumatic in nature. 2. Small amount of calcification medial aspect first MTP joint may reflect out chondrocalcinosis. This can be associated with pseudogout. Dictated by... Tobin Mariscal M.D. THIS IS AN ELECTRONICALLY VERIFIED REPORT [facility] A Service of [facility] & [facility] RADIOLOGY TEXT RESULTS PATIENT: FE MIRZA II LOCATION: [facility] [phone] : [birth year] UNIT #: [id number] AGE: [address]: Mirella Blum MD SEX: M ORDER DR: Tobin Mariscal M.D. at 05/29/2017 2:34 PM JONNA/roland TD: 05/29/2017 08:14 JOB #: [id number] MEDICAL IMAGING REPORT Page 1 of 1 COPY
[~2017-05-28 02:36] MED LIST changes: +DOXYCYCLINE HYC50 M1 PO; +LORTAB 10-3251 EACH; +NO MEDICATIONS; +PAIN RELIEF500 M1 PO; +ZYVOX600 MG PO
[2017-05-28 06:37] LABS: BASOPHIL# 0.1 X10e3 (0-0.3); BASOPHIL% 0.5 % (0-2.5); EOSINOPHIL# 0.1 X10e3 (0-0.7); EOSINOPHIL% 0.8 % (0.0-7.0); HEMATOCRIT 43.1 % (38.0-50.0); HEMOGLOBIN 14.9 gm/dL (13.0-16.0); LYMPHOCYTE# 3.6 X10e3 (1.0-3.5); LYMPHOCYTE% 27.2 % (17.0-45.0); MEAN CELL VOLUME 83.6 FL (83-96); MEAN CORPUSCULAR HEMOGLOBIN 28.9 PG (28-34); MEAN CORPUSCULAR HGB CONC 34.5 g/dL (30-36); MEAN PLATELET VOLUME 6.8 FL (6.5-11.5); MONOCYTE# 0.8 X10e3 (0-1.0); MONOCYTE% 6.5 % (3.0-12.0); NEUTROPHIL# 8.5 X10e3 (1.5-7.1); PLATELET COUNT 332 X10e3 (140-420); RED BLOOD COUNT 5.16 X10e (3.90-5.60); RED CELL DISTRIBUTION WIDTH 13.6 % (11.0-15.5); WHITE BLOOD COUNT 13.1 X10e3 (4.0-10.5)
[2017-05-28 06:39] LABS: DIFF IND NO
[2017-05-28 07:05] LABS: ALBUMIN SERUM 4.5 g/dL (3.5-5.0); BILIRUBIN,TOTAL 0.5 mg/dL (0.2-2.0); BUN/CREATININE RATIO 15.55; CALCIUM SERUM 9.2 mg/dL (8.4-10.2); CREATININE SERUM 0.9 mg/dL (0.6-1.4); GLOM FILT RATE Estimated 101.4 mL/min (>60); POTASSIUM 4.3 mmol/L (3.5-5.1); PROTEIN TOTAL SERUM 8.2 g/dL (6.0-8.3); URIC ACID 6.6 mg/dL (2.6-7.2)
[2017-05-28] MEDS ORDERED: DOXYCYCLINE MON50 M1 PO (10:21)
[2017-05-29 08:39] LABS: HEMATOCRIT 41.2 % (38.0-50.0); HEMOGLOBIN 14.2 gm/dL (13.0-16.0); MEAN CELL VOLUME 83.5 FL (83-96); MEAN CORPUSCULAR HEMOGLOBIN 28.7 PG (28-34); MEAN CORPUSCULAR HGB CONC 34.4 g/dL (30-36); MEAN PLATELET VOLUME 6.7 FL (6.5-11.5); RED BLOOD COUNT 4.94 X10e (3.90-5.60); RED CELL DISTRIBUTION WIDTH 13.4 % (11.0-15.5); WHITE BLOOD COUNT 12.1 X10e3 (4.0-10.5)
[2017-05-29 09:07] LABS: ALBUMIN SERUM 4.2 g/dL (3.5-5.0); BILIRUBIN,TOTAL 0.7 mg/dL (0.2-2.0); BUN/CREATININE RATIO 13.75; CALCIUM SERUM 9.1 mg/dL (8.4-10.2); CREATININE SERUM 0.8 mg/dL (0.6-1.4); GLOM FILT RATE Estimated 106.4 mL/min (>60); POTASSIUM 4.9 mmol/L (3.5-5.1); PROTEIN TOTAL SERUM 7.7 g/dL (6.0-8.3)
[2017-05-29 13:51] LABS: AMPHETAMINE NEG (NEG); BARBITURATES NEG (NEG); BENZODIAZEPINES NEG (NEG); COCAINE NEG (NEG); MARIJUANA NEG (NEG); OPIATES POS (NEG); TRICYCLIC ANTIDEPRESSANTS NEG (NEG); U METHADONE NEG (NEG)
[2017-05-29] MEDS ORDERED: ROXICODONE5 MG PO (16:02)
[2017-05-29] MEDS ORDERED: NAPROXEN PO (16:04)
== END 2017-05-29 17:07 | disposition home or self-care (01) | DRG 554 ==
LOC: CED 02:36 → C4C 10:00 → CED 10:08 → C4C 05-29 07:35
PROVIDERS: Emergency Medicine; Family Medicine; Internal Medicine
DX: M10.071 Idiopathic gout, right ankle and foot (principal); E66.9 Obesity, unspecified; D72.828 Other elevated white blood cell count; Z86.14 Personal history of Methicillin resistant Staphylococcus aureus infection; Z88.0 Allergy status to penicillin; Z68.38 Body mass index [BMI] 38.0-38.9, adult
CPT/HCPCS: 36415; 73610; 73700; 80053; 80307; 83605; 84550; 85025; 85027; 85652; 86140; 87040; 93971; 96374; 96375; 96376; 99285; J0696; J1170; J2270; J2405; J2920; J3370